=== PATIENT | male | born 1955 | race Caucasian/White ===

== ENCOUNTER 2017-01-16 12:50 | Inpatient (IN) | payer OTHER ==
[2017-01-16] MEDS ORDERED: Morphine 10 MG/ML VIAL ONE ×3 (13:22→14:55)
[2017-01-16] MEDS ORDERED: Ondansetron ODT 4 MG TAB ONE (13:23)
[2017-01-16] MEDS ORDERED: Ondansetron HCl/PF 4 MG/2 ML Vial ONE (13:25)
--- NOTE | 2017-01-16 13:31 | RAD ---
UPRIGHT PORTABLE CHEST 1 VIEW: FINDINGS: Monitor leads overlie the chest. There are postsurgical clips overlying the right hilar region. Th ere are minimal increased linear and interstitial markings noted bilaterally, possibly representing some mild vascular congestion. No confluent pneumonia, significant pleural effusion, or other acute process. IMPRESSION: Increased markings noted in the perihilar regions and lower lung zones, possibly mild vascular conge stion. Postoperative surgical clips overlying the right hilar region. No evidence for pneumonia. Less inspiration than on the prior study. POS: HORACIO
[2017-01-16 13:42] LABS: #Lymphocytes 0.6 thou/uL (1.20-3.40); #Neutrophils 12.6 thou/uL (1.40-6.50); %Basophils 0.1 % (0.0-1.0); %Eosinophils 0.2 % (0.0-10.0); %Lymphocytes 4.5 % (21.0-51.0); %Monocytes 7.2 % (0.0-10.0); Hematocrit 44.5 % (42.0-52.0); Mean Platelet Volume 9.4 fL (7.4-10.4); Red Blood Cell (RBC) Count 4.83 mill/uL (4.70-6.10); White Blood Cell (WBC) Count 14.3 thou/uL (4.8-10.8)
[2017-01-16 13:50] LABS: Lactic Acid - Sepsis 1.6 mmol/L (0.5-2.2)
[2017-01-16 13:54] LABS: ALT (SGPT) 27 U/L (8-55); AST (SGOT) 24 U/L (5-34); Alkaline Phosphatase 55 U/L (40-150); Anion Gap 15 mmol/L (10-20); BUN (Urea Nitrogen) 21 mg/dL (8.4-25.7); Bilirubin, Total 0.5 mg/dL (0.2-1.2); CK (CPK) 266 U/L (30-200); Calc. Creatinine Clearance 0 mL/min (70-130); Calcium 8.4 mg/dL (7.8-10.44); Carbon Dioxide 22 mmol/L (23-31); Chloride 103 mmol/L (98-107); Estimated GFR-MDRD 50; Globulin 3.1 g/dL (2.4-3.5); Lipase 17 U/L (8-78)
[2017-01-16 13:56] LABS: Troponin I Less than 0.010 ng/mL (< 0.028)
[2017-01-16 14:09] LABS: PTT 30.6 SEC (22.9-36.1); Prothrombin Time 13.8 SEC (12.0-14.7)
[2017-01-16 14:52] LABS: Bilirubin Negative (Negative); Blood, Urine Negative (Negative); Glucose, Urine (Dipstick) Negative (Negative); Ketone, Urine Negative (Negative); Nitrite Negative (Negative); Protein, Urine (Dipstick) 30 mg/dL (Neg-Trace)
[2017-01-16 14:54] LABS: Bacteria/HPF None Seen HPF (None Seen); Hyaline Casts/LPF 0-3 HYALINE CAST LPF (0-3 Hyaline); RBC/HPF 0-3 HPF (0-3); Squamous Epithelial None Seen HPF (0-3); WBC/HPF 0-3 HPF (0-3)
--- NOTE | 2017-01-16 15:52 | CT ---
ABDOMEN AND PELVIC CT SCAN WITH IV CONTRAST: History: 61-year-old male with abdominal pain which began on Tuesday. FINDINGS: There is some patchy interstitial and alveolar opacities in the left lower lobe, evidence for some l eft lower lobe developing pneumonia or left lower lobe pneumonitis. These findings are new when comp ared to a 08-27-11 CT. There appears to be some reflux into the distal esophagus. The gallbladder is mildly distended and contains some gallstones but no gallbladder wall thickening or evidence for per icholecystic fluid or fat stranding. The liver, pancreas, and adrenal glands are unremarkable. The l eft kidney is a very small hypoplastic appearing left kidney. There are several left periaortic lymp h nodes which are at least borderline enlarged to mildly enlarged measuring up to approximately 1.1 cm in short axis in the left periaortic region just below the level of the left renal artery. Promin ent atherosclerotic calcific changes of the aorta and particularly the common iliac arteries with so me left common iliac artery stenosis. There appear to be bilateral external iliac stents. Surgical c lips in the left groin. There is some minimal fluid within borderline sized small bowel loops withou t evidence for large and small bowel obstruction. Normal appearing appendix. There is some mild scat tered nonspecific mesenteric fat stranding, particularly in the central mesentery. IMPRESSION: 1. Evidence for left lower lobe pneumonia/pneumonitis. 2. Very small atrophic appearing left kidney. Multiple gallstones without gallbladder wall thickenin g or pericholecystic fluid or fat stranding or ductal dilatation. Minimally enlarged left retroperit james lymph nodes up to 1.1 cm. Nonspecific mesenteric fat stranding in the central and inferior mes entery. There is a moderate amount of fluid within nondilated or borderline size small bowel loops w ithout evidence for acute obstruction. Prominent arterial vascular disease of the aorta and iliac ve ssels. Normal appearing appendix. POS: CHERYL
[2017-01-16] MEDS ORDERED: ISOVUE-370 76%-LOCM 1 ML ONE (16:19)
[2017-01-16] MEDS ORDERED: Loratadine 10 MG TAB PO PRN (16:28)
[2017-01-16] MEDS ORDERED: Acetaminophen 325 MG TAB PO PRN (16:28)
[2017-01-16] MEDS ORDERED: Milk Of Magnesia 30 ML UDCUP PO PRN (16:28)
[2017-01-16] MEDS ORDERED: Senokot 8.6 MG TAB PO PRN (16:28)
[2017-01-16] MEDS ORDERED: Eucerin (Mineral Oil/Petrolatum,White) 30 gm Jar TOP PRN (16:28)
[2017-01-16] MEDS ORDERED: Ondansetron ODT 4 MG TAB PO PRN (16:28)
[2017-01-16] MEDS ORDERED: Artificial Tears 18 DROP/0.9 ML EA EYE PRN (16:28)
[2017-01-16] MEDS ORDERED: Mag-Al 1200 mg/1200 mg/30 ML UDCUP PO PRN (16:28)
[2017-01-16] MEDS ORDERED: Loperamide HCl 2 MG CAP PO PRN (16:28)
[2017-01-16] MEDS ORDERED: Chloraseptic Spray 180 ml Bottle PO PRN (16:28)
[2017-01-16] MEDS ORDERED: Diabetic Tussin 200 MG/10 ML UDCUP PO PRN (16:28)
[2017-01-16] MEDS ORDERED: Sodium Chloride 0.65% Nasal 44 ML BOT EA NARE PRN (16:28)
[2017-01-16] MEDS ORDERED: Zolpidem Tartrate 5 MG TAB PO PRN (16:28)
[2017-01-16] MEDS ORDERED: hydrALAZINE 20 MG/ML VIAL SLOW IVP PRN (16:28)
[2017-01-16] MEDS ORDERED: cefTRIAXone\\ROCEPHIN 1 GM in Sodium Chloride 0.9% 100 ML IVPB SCH (16:28)
[2017-01-16] MEDS ORDERED: HYDROcodone/Acetaminophen 10/325 mg Tablet PO PRN (16:28)
[2017-01-16 16:36] VITALS: BMI 24.3
--- NOTE | 2017-01-16 16:38 | HP ---
PRIMARY CARE PHYSICIAN: Dr. Karly Wood. REASON FOR ADMISSION: Intractable abdominal pain, pneumonia. HISTORY OF PRESENT ILLNESS: A 61-year-old male with history of COPD and hypertension, who came to e mergewiy room with complaint of abdominal pain, which was started Tuesday night. On Tuesday, he was having 5 times liquidy diarrhea. He describes abdominal pain, diffuse, 10/10 in intensity, there i s no specific aggravating or relieving factor, constant abdominal pain. He denies any abdominal dis tention. He denies any hematemesis, hematochezia, or melena. He was feeling nausea. For the last week, patient was also experiencing cough, productive of scanty amount of sputum. He was also feeli ng sweating and chills. He did not measure temperature. He is feeling pleuritic chest pain. His last bowel movement was earlier today at 10:00 a.m. Since then, his diarrhea is slowed down. H e does not have any ongoing vomiting. He denies any urinary tract infection symptoms. For the last couple of days, he was only eating liquid and Jellos, because he was not feeling well. He denies a [place] flu-like illness. He denies any recent travel or sick exposure. He denies any unusual food weston stion. REVIEW OF SYSTEMS: Please see my HPI for pertinent positives and negatives. All other review of sy stems reviewed and negative except as mentioned in the HPI. Constitutional: Weight loss or gain, ability to conduct usual activities. Skin: Rash, itching. Eyes: Double vision, pain. ENT/Mouth: Nose bleeding, neck stiffness, pain, tenderness. Cardiovascular: Palpitations, dyspnea on exertion, orthopnea. Respiratory: Shortness of breath, wheezing, cough, hemoptysis, fever, or night sweats. Gastrointestinal: Poor appetite, abdominal pain, heartburn, nausea, vomiting, constipation, or diar [place]. Genitourinary: Urgency, frequency, dysuria, nocturia. Musculoskeletal: Pain, swelling. Neurologic/Psychiatric: Anxiety, depression. Allergy/Immunologic: Skin rash, bleeding tendency. ALLERGIES: No known drug allergies. CURRENT HOME MEDICATIONS: Aspirin 81 mg p.o. daily, Cymbalta 30 mg p.o. daily, Singulair 10 mg p.o. daily, Nexium 40 mg p.o. daily, terazosin 2 mg p.o. daily, losartan 50 mg p.o. daily, acyclovir 400 mg twice daily, clonazepam 1 mg twice daily, Symbicort 2 puffs inhalation b.i.d. PAST MEDICAL HISTORY: COPD/asthma, gastroesophageal reflux disease, hypertension, benign enlargemen t of prostate. PAST PSYCHIATRIC HISTORY: Anxiety and depression. PAST SURGICAL HISTORY: Major right thoracotomy with exploration and excisional biopsy of right uppe r lobe lung mass. SOCIAL HISTORY: Patient is smoking about half pack per day. He denies any alcohol abuse. He denie s any other illicit drug abuse. He lives at home with family. FAMILY HISTORY: No strong family history of premature coronary artery disease, stroke, or cancer. EMERGENCY ROOM COURSE: Patient is given Levaquin 750 mg, morphine 4 mg x2, Zofran 8 mg, IV fluid. PHYSICAL EXAMINATION: VITAL SIGNS: Currently blood pressure 154/81, pulse 96, respiratory rate 18, temperature 98.3, satu ration 92% on room air, weight 78.9 kilograms. GENERAL: Patient is currently alert, awake, in no obvious acute distress. HEAD: Normocephalic, atraumatic. EYES: Pupils round, reactive to light. Extraocular muscles intact. ENT: Oropharynx within normal limits. Moist mucous membranes. No oral lesions. No pharyngeal ganesh thema, no exudate. NECK: Supple. Range of motion is normal. No meningeal signs of irritation. LUNGS: Clear to auscultation without any obvious rhonchi or rales. CARDIAC: S1, S2 regular. No murmur, no gallop, no rub. ABDOMEN: Diffusely tender. No peritoneal signs, no guarding, no rigidity, no rebound. Mild disten tion noted. BACK: Unremarkable. No CVA tenderness. EXTREMITIES: Upper extremity of passive movement of all joints are normal. Lower extremity, no charly ma. Good peripheral pulsation. SKIN: No skin rash. HEMATOLOGICAL SYSTEM: No lymphadenopathy. PSYCHIATRIC: Normal affect. SIGNIFICANT LABORATORY DATA: EKG based on my review reveals normal sinus rhythm within normal limit s. Chest x-ray based on my review, mild cardiomegaly, no acute cardiopulmonary process. CT of the abdomen and pelvis showing left lower lobe pneumonia minimally enlarged lymph nodes, normal appendix , gallstone, but no cholecystitis. Ultrasound gallbladder is pending. CBC: WBC 14.3, hemoglobin 14.9, platelet 159. INR 1.1. BMP: Sodium 136, potassium 3.9, chloride 103, carbon dioxide 22, BUN 21, creatinine 1.44, glucose 115, calcium 8.4, lactic acid 1.6. LFT: A ST 24, ALT 27, alkaline phosphatase 55, albumin 3.9. CK 266, CK-MB 1.7, troponin I less than 0.010, BNP less than 10. Lipase 17. Urinalysis normal. ASSESSMENT AND PLAN: 1. Left lower lobe pneumonia, community acquired. Patient will be given Levaquin and Rocephin whil e in hospital. Mucinex 600 mg twice daily and DuoNeb q.6 hourly p.r.n. The patient's respiratory s ymptoms and CT finding consistent with left lower lobe pneumonia. 2. Intractable abdominal pain. Patient might have underlying acute cholecystitis. Patient does baez ve gallstones. We will do HIDA scan to rule out acute cholecystitis. We are going to do abdomen an d pelvis CT scan as well as we are also going to review abdominal ultrasound. We will continue the clear liquid diet. We will control his pain with morphine p.r.n. basis, Pepcid 20 mg IV b.i.d. 3. Acute kidney failure. The patient will be given IV fluids with dextrose normal saline at 100 mL per hour. 4. Leukocytosis with left shift, likely due to problem #1 and #2. We will repeat CBC tomorrow. 5. Chronic obstructive pulmonary disease. We will continue DuoNeb q.6 hourly p.r.n., Symbicort 2 p uff inhalation b.i.d. 6. Anxiety and depression. We will continue Cymbalta 30 mg p.o. daily, clonazepam 1 mg twice daily . 7. Hypertension. We will continue losartan 50 mg p.o. daily. 8. Gastroesophageal reflux disease. We will continue Pepcid 20 mg IV b.i.d./Protonix 40 mg IV dickson y. 9. Benign enlargement of prostate. We will continue terazosin 2 mg p.o. daily. 10. Deep venous thrombosis prophylaxis, SCD boots. 11. Gastrointestinal prophylaxis. Patient is already on Pepcid/Protonix therapy. 12. Code status: The patient is FULL CODE. 13. Tobacco abuse disorder. Smoking cessation counseling given. Healthy lifestyle measures discus sed with the patient. Disposition plan based on clinical course. We are expecting patient's stay in hospital more than 2 midnights. Plan of care discussed with the patient and family member at bedside in the emergency room.
--- NOTE | 2017-01-16 17:07 | ULT ---
GALLBLADDER ULTRASOUND: History: 61-year-old male with epigastric pain for three days. FINDINGS: There are multiple mobile gallstones within the gallbladder. No pericholecystic fluid. Common bile d uct 0.4 cm. Visualized liver and pancreas unremarkable. There is an approximately 2 cm diameter nodu lar area involving the mid kidney which may just represent a prominent hypertrophic column of Arsh in this somewhat hypertrophied right kidney. Review of prior CT of 01-16-17 demonstrates no definit e evidence for solid or cystic mass in the right kidney by CT. IMPRESSION: Multiple cholelithiasis without gallbladder wall thickening or ductal dilatation. 2 cm focal area of slightly altered echogenicity in the mid renal cortex, probably just a hypertrophic Column of Berti n given the lack of significant finding on the abdomen and pelvic CT scan done earlier. However, if the patient has hematuria or other symptoms, consideration for a non-emergent follow up CT scan with urography protocol which would include with and without multiphase imaging of the ki dneys is suggested for assessment. POS: HORACIO
[2017-01-16] MEDS: Dextrose 5 % And 0.9 % NaCl 1,000 ML IV SCH (17:33)
[2017-01-16] MEDS: cefTRIAXone\\ROCEPHIN 1 GM, Syringe 0.4 ML in Sterile Water 9.6 ML SLOW IVP SCH (17:36)
[2017-01-16] MEDS: Mometasone/Formoterol 120 PUFF INHALER INH SCH (19:10)
[2017-01-16] MEDS: Pantoprazole 40 MG VIAL IVP SCH (20:57)
[2017-01-16] MEDS: Montelukast Sodium 10 mg Tablet PO SCH (20:57)
[2017-01-16] MEDS: Terazosin HCl 1 MG CAP PO SCH (20:59)
[2017-01-16] MEDS: clonazePAM 0.5 MG TAB PO PRN (21:15)
[2017-01-17 05:07] LABS: #Eosinphils 0.2 thou/uL (0.0-0.7); #Lymphocytes 1.1 thou/uL (1.20-3.40); #Neutrophils 7.3 thou/uL (1.40-6.50); %Basophils 0.2 % (0.0-1.0); %Eosinophils 1.9 % (0.0-10.0); %Lymphocytes 11.9 % (21.0-51.0); %Monocytes 10.5 % (0.0-10.0); Red Blood Cell (RBC) Count 4.08 mill/uL (4.70-6.10); White Blood Cell (WBC) Count 9.6 thou/uL (4.8-10.8)
[2017-01-17] MEDS: Dextrose 5 % And 0.9 % NaCl 1,000 ML IV SCH ×4 (05:15→23:48)
[2017-01-17 05:32] LABS: ALT (SGPT) 24 U/L (8-55); AST (SGOT) 25 U/L (5-34); Alkaline Phosphatase 47 U/L (40-150); Anion Gap 9 mmol/L (10-20); BUN (Urea Nitrogen) 16 mg/dL (8.4-25.7); Bilirubin, Total 0.4 mg/dL (0.2-1.2); Calc. Creatinine Clearance 63 mL/min (70-130); Calcium 7.5 mg/dL (7.8-10.44); Carbon Dioxide 23 mmol/L (23-31); Chloride 105 mmol/L (98-107); Estimated GFR-MDRD 54; Globulin 2.5 g/dL (2.4-3.5); Protein, Total 5.5 g/dL (5.8-8.1)
[2017-01-17] MEDS: Mometasone/Formoterol 120 PUFF INHALER INH SCH ×2 (07:01→18:08)
[2017-01-17] MEDS: Enoxaparin Sodium 30 MG/0.3 ML SYRINGE SC SCH (10:58)
[2017-01-17] MEDS: Pantoprazole 40 MG VIAL IVP SCH ×2 (10:58→20:27)
[2017-01-17] MEDS: Losartan Potassium 25 MG TAB PO SCH ×2 (10:59→14:36)
--- NOTE | 2017-01-17 13:49 | PDOC.PN ---
- Subjective Encounter Start Date: 01/17/17 Encounter Start Time: 09:30 Patient seen and examined. No overnight events, has abdominal pain, no fever, has cough - Objective Resuscitation Status: Resuscitation Status FULL:Full Resuscitation MAR Reviewed: Yes Vital Signs & Weight: Vital Signs (12 hours) Temp Pulse Resp BP Pulse Ox 01/17/17 11:06 97.6 F 82 18 106/62 94 L 01/17/17 08:00 97.6 F 75 20 116/66 96 01/17/17 07:30 98.2 F 82 18 01/17/17 04:00 98.2 F 82 18 97/60 94 L Weight Weight 169 lb 6.4 oz I&O: 01/16/17 01/17/17 01/18/17 06:59 06:59 06:59 Intake Total 2310 Balance 2310 Result Diagrams: 01/17/17 04:20 01/17/17 04:20 Phys Exam - Physical Examination Constitutional: NAD HEENT: PERRLA, moist MMs, sclera anicteric Neck: no JVD, supple Respiratory: no wheezing, no rales, no rhonchi Cardiovascular: RRR, no significant murmur, no rub Gastrointestinal: soft, no distention, positive bowel sounds diffuse soreness Musculoskeletal: no edema, pulses present Neurological: non-focal, normal sensation, moves all 4 limbs Lymphatic: no nodes Psychiatric: normal affect, A&O x 3 Skin: no rash, normal turgor Dx/Plan (1) Abdominal pain Code(s): R10.9 - UNSPECIFIED ABDOMINAL PAIN Status: Acute Qualifiers: Abdominal location: generalized Qualified Code(s): R10.84 - Generalized abdominal pain (2) Community acquired bacterial pneumonia Code(s): J15.9 - UNSPECIFIED BACTERIAL PNEUMONIA Status: Acute (3) Anxiety and depression Code(s): F41.8 - OTHER SPECIFIED ANXIETY DISORDERS Status: Chronic (4) CKD (chronic kidney disease) stage 3, GFR 30-59 ml/min Code(s): N18.3 - CHRONIC KIDNEY DISEASE, STAGE 3 (MODERATE) Status: Chronic (5) COPD (chronic obstructive pulmonary disease) Status: Chronic (6) Cholelithiases Code(s): K80.20 - CALCULUS OF GALLBLADDER W/O CHOLECYSTITIS W/O OBSTRUCTION Status: Chronic (7) GERD (gastroesophageal reflux disease) Code(s): K21.9 - GASTRO-ESOPHAGEAL REFLUX DISEASE WITHOUT ESOPHAGITIS Status: Chronic (8) Hypertension Code(s): I10 - ESSENTIAL (PRIMARY) HYPERTENSION Status: Chronic (9) Tobacco abuse Code(s): Z72.0 - TOBACCO USE Status: Chronic - Plan cont current plan of care, continue antibiotics * continue rocephin and levaquin * medication reviewed as below * symptomatic treatment * HIDA scan today * pain controlled * follow culture. Review of Systems - Review of Systems ENT: negative: Ear Pain, Ear Discharge, Nose Pain, Nose Discharge, Nose Congestion, Mouth Pain, Mouth Swelling, Throat Pain, Throat Swelling, Other Respiratory: Cough. negative: Dry, Shortness of Breath, Hemoptysis, SOB with Excertion, Pleuritic Pain, Sputum, Wheezing Cardiovascular: negative: Chest Pain, Palpitations, Orthopnea, Paroxysmal Noc. Dyspnea, Edema, Light Headedness, Other Gastrointestinal: Abdominal Pain. negative: Nausea, Vomiting, Diarrhea, Constipation, Melena, Hematochezia, Other Genitourinary: negative: Dysuria, Frequency, Incontinence, Hematuria, Retention , Other Musculoskeletal: negative: Neck Pain, Shoulder Pain, Arm Pain, Back Pain, Hand Pain, Leg Pain, Foot Pain, Other Skin: negative: Rash, Lesions, Delon, Bruising, Other - Medications/Allergies Allergies/Adverse Reactions: Allergies Allergy/AdvReac Type Severity Reaction Status Date / Time No Known Drug Allergies Allergy Verified 03/25/16 10:01 Medications: Current Medications Acetaminophen (Tylenol) 650 mg PO Q4H PRN PRN Reason: Headache/Fever or Pain Hydrocodone Bitart/Acetaminophen ([place] 10/325) 1 tab PO Q4H PRN PRN Reason: Moderate Pain (4-6) Al Hydroxide/Mg Hydroxide (Maalox) 30 ml PO Q6H PRN PRN Reason: Heartburn or Indigestion Albuterol/Ipratropium (Duoneb) 3 ml NEB [id number] PRN PRN Reason: SOB &/or Wheezing Artificial Tears (Tears Naturale) 0 drop EA EYE PRN PRN PRN Reason: Dry Eyes Clonazepam (Klonopin) 1 mg PO BIDPRN PRN PRN Reason: Anxiety/Agitation Last Admin: 01/16/17 21:15 Dose: 1 mg Duloxetine HCl (Cymbalta) 30 mg PO BID [facility] Last Admin: 01/17/17 10:59 Dose: Not Given Enoxaparin Sodium (Lovenox) 30 mg SC 0900 [facility] Last Admin: 01/17/17 10:58 Dose: 30 mg Guaifenesin (Robitussin Sf) 200 mg PO Q4H PRN PRN Reason: Cough Hydralazine HCl (Apresoline) 10 mg SLOW IVP Q4H PRN PRN Reason: Systolic BP > 180 Levofloxacin 500 mg/ Device 100 mls @ 100 mls/hr IVPB 1700 [facility] Last Admin: 01/16/17 17:16 Dose: 100 mls Dextrose/Sodium Chloride (D5 0.9% Ns) 1,000 mls @ 100 mls/hr IV .Q10H [facility] Last Admin: 01/17/17 05:15 Dose: 1,000 mls Ceftriaxone Sodium 1 gm/ (Syringe 0.4 ml/ Sterile Water) 10 mls @ 120 mls/hr SLOW IVP 1800 [facility] Last Admin: 01/16/17 17:36 Dose: 10 mls Loperamide HCl (Imodium) 2 mg PO PRN PRN PRN Reason: Diarrhea/Loose Stools Loratadine (Claritin) 10 mg PO DAILYPRN PRN PRN Reason: Sinus Symptoms Losartan Potassium (Cozaar) 50 mg PO DAILY [facility] Last Admin: 01/17/17 10:59 Dose: Not Given Magnesium Hydroxide (Milk Of Magnesium) 30 ml PO DAILYPRN PRN PRN Reason: Constipation Mineral Oil/White Petrolatum (Eucerin Cream) 0 gm TOP BIDPRN PRN PRN Reason: Dry Skin Mometasone Furoate/Formoterol Fumar (Dulera 200 Mcg/5 Mcg Inhaler) 2 puff INH BID-RT [facility] Last Admin: 01/17/17 07:01 Dose: 2 puff Montelukast Sodium (Singulair) 10 mg PO QPM [facility] Last Admin: 01/16/17 20:57 Dose: 10 mg Morphine Sulfate (Morphine Sulfate) 4 mg SLOW IVP Q4H PRN PRN Reason: Pain Ondansetron HCl (Zofran Odt) 4 mg PO Q6H PRN PRN Reason: Nausea/Vomiting Ondansetron HCl (Zofran) 4 mg IVP Q6H PRN PRN Reason: Nausea/Vomiting Pantoprazole Sodium (Protonix) 40 mg IVP Q12HR [facility] Last Admin: 01/17/17 10:58 Dose: 40 mg Phenol (Chloraseptic [place] 180 Ml Bot) 0 ml PO PRN PRN PRN Reason: Sore Throat Senna (Senokot) 2 tab PO HSPRN PRN PRN Reason: Constipation Sodium Chloride ([place] Nasal [place] 0.65%) 0 ml EA NARE QIDPRN PRN PRN Reason: Nasal Congestion Terazosin HCl (Hytrin) 2 mg PO HS [facility] Last Admin: 01/16/17 20:59 Dose: 2 mg Zolpidem Tartrate (Ambien) 5 mg PO HSPRN PRN PRN Reason: Insomnia
[2017-01-17] MEDS: Ondansetron HCl/PF 4 MG/2 ML Vial IVP PRN (14:36)
[2017-01-17] MEDS: clonazePAM 0.5 MG TAB PO PRN ×2 (14:39→20:31)
[2017-01-17] MEDS: Morphine 4 MG/ML VIAL SLOW IVP PRN (17:34)
[2017-01-17] MEDS: cefTRIAXone\\ROCEPHIN 1 GM, Syringe 0.4 ML in Sterile Water 9.6 ML SLOW IVP SCH (17:38)
[2017-01-17] MEDS: Montelukast Sodium 10 mg Tablet PO SCH (20:27)
[2017-01-17] MEDS: Terazosin HCl 1 MG CAP PO SCH (20:27)
[2017-01-18] MEDS: Mometasone/Formoterol 120 PUFF INHALER INH SCH ×2 (06:05→18:16)
[2017-01-18] MEDS: Ondansetron HCl/PF 4 MG/2 ML Vial IVP PRN ×2 (06:38→12:19)
--- NOTE | 2017-01-18 11:57 | PDOC.PN ---
- Subjective Encounter Start Date: 01/18/17 Encounter Start Time: 09:10 he wants to eat but now npo for hida scan, has vague abdominal pain, cough+, no fever - Objective Resuscitation Status: Resuscitation Status FULL:Full Resuscitation MAR Reviewed: Yes Vital Signs & Weight: Vital Signs (12 hours) Temp Pulse Resp BP Pulse Ox 01/18/17 07:34 97.9 F 62 20 123/66 93 L 01/18/17 06:05 69 14 95 01/18/17 00:43 96 01/18/17 00:09 97.9 F 71 20 98/58 L 95 Weight Weight 169 lb 6.4 oz I&O: 01/17/17 01/18/17 01/19/17 06:59 06:59 06:59 Intake Total 2310 4540 Balance 2310 4540 Result Diagrams: 01/17/17 04:20 01/17/17 04:20 Phys Exam - Physical Examination Constitutional: NAD HEENT: PERRLA, moist MMs, sclera anicteric Neck: no JVD, supple Respiratory: no wheezing, no rales, no rhonchi Cardiovascular: RRR, no significant murmur, no rub Gastrointestinal: soft, non-tender, no distention, positive bowel sounds Musculoskeletal: no edema, pulses present Neurological: non-focal, normal sensation Psychiatric: normal affect, A&O x 3 Skin: no rash, normal turgor Dx/Plan (1) Abdominal pain Code(s): R10.9 - UNSPECIFIED ABDOMINAL PAIN Status: Acute Qualifiers: Abdominal location: generalized Qualified Code(s): R10.84 - Generalized abdominal pain (2) Community acquired bacterial pneumonia Code(s): J15.9 - UNSPECIFIED BACTERIAL PNEUMONIA Status: Acute (3) Anxiety and depression Code(s): F41.8 - OTHER SPECIFIED ANXIETY DISORDERS Status: Chronic (4) CKD (chronic kidney disease) stage 3, GFR 30-59 ml/min Code(s): N18.3 - CHRONIC KIDNEY DISEASE, STAGE 3 (MODERATE) Status: Chronic (5) COPD (chronic obstructive pulmonary disease) Status: Chronic (6) Cholelithiases Code(s): K80.20 - CALCULUS OF GALLBLADDER W/O CHOLECYSTITIS W/O OBSTRUCTION Status: Chronic (7) GERD (gastroesophageal reflux disease) Code(s): K21.9 - GASTRO-ESOPHAGEAL REFLUX DISEASE WITHOUT ESOPHAGITIS Status: Chronic (8) Hypertension Code(s): I10 - ESSENTIAL (PRIMARY) HYPERTENSION Status: Chronic (9) Tobacco abuse Code(s): Z72.0 - TOBACCO USE Status: Chronic - Plan cont current plan of care, continue antibiotics * today HIDA scan * abdominal pain is unexplained but exam benign * medication reviewed as below * symptomatic treatment * continue IV antibiotics * repeat labs tomorrow. Review of Systems - Review of Systems Constitutional: negative: Fever, Chills, Sweats, Weakness, Malaise, Other Eyes: negative: Pain, Vision Change, Conjunctivae Inflammation, Eyelid Inflammation, Redness, Other ENT: negative: Ear Pain, Ear Discharge, Nose Pain, Nose Discharge, Nose Congestion, Mouth Pain, Mouth Swelling, Throat Pain, Throat Swelling, Other Respiratory: negative: Cough, Dry, Shortness of Breath, Hemoptysis, SOB with Excertion, Pleuritic Pain, Sputum, Wheezing Cardiovascular: negative: Chest Pain, Palpitations, Orthopnea, Paroxysmal Noc. Dyspnea, Edema, Light Headedness, Other Gastrointestinal: Abdominal Pain. negative: Nausea, Vomiting, Diarrhea, Constipation, Melena, Hematochezia, Other Genitourinary: negative: Dysuria, Frequency, Incontinence, Hematuria, Retention , Other Musculoskeletal: negative: Neck Pain, Shoulder Pain, Arm Pain, Back Pain, Hand Pain, Leg Pain, Foot Pain, Other - Medications/Allergies Allergies/Adverse Reactions: Allergies Allergy/AdvReac Type Severity Reaction Status Date / Time No Known Drug Allergies Allergy Verified 03/25/16 10:01 Medications: Current Medications Acetaminophen (Tylenol) 650 mg PO Q4H PRN PRN Reason: Headache/Fever or Pain Hydrocodone Bitart/Acetaminophen ([place] 10/325) 1 tab PO Q4H PRN PRN Reason: Moderate Pain (4-6) Al Hydroxide/Mg Hydroxide (Maalox) 30 ml PO Q6H PRN PRN Reason: Heartburn or Indigestion Albuterol/Ipratropium (Duoneb) 3 ml NEB [id number] PRN PRN Reason: SOB &/or Wheezing Artificial Tears (Tears Naturale) 0 drop EA EYE PRN PRN PRN Reason: Dry Eyes Clonazepam (Klonopin) 1 mg PO BIDPRN PRN PRN Reason: Anxiety/Agitation Last Admin: 01/17/17 20:31 Dose: 1 mg Duloxetine HCl (Cymbalta) 30 mg PO BID [facility] Last Admin: 01/17/17 20:26 Dose: Not Given Enoxaparin Sodium (Lovenox) 30 mg SC 0900 [facility] Last Admin: 01/17/17 10:58 Dose: 30 mg Guaifenesin (Robitussin Sf) 200 mg PO Q4H PRN PRN Reason: Cough Hydralazine HCl (Apresoline) 10 mg SLOW IVP Q4H PRN PRN Reason: Systolic BP > 180 Levofloxacin 500 mg/ Device 100 mls @ 100 mls/hr IVPB 1700 [facility] Last Admin: 01/17/17 16:44 Dose: 100 mls Dextrose/Sodium Chloride (D5 0.9% Ns) 1,000 mls @ 100 mls/hr IV .Q10H [facility] Last Admin: 01/17/17 23:48 Dose: 1,000 mls Ceftriaxone Sodium 1 gm/ (Syringe 0.4 ml/ Sterile Water) 10 mls @ 120 mls/hr SLOW IVP 1800 [facility] Last Admin: 01/17/17 17:38 Dose: 10 mls Loperamide HCl (Imodium) 2 mg PO PRN PRN PRN Reason: Diarrhea/Loose Stools Loratadine (Claritin) 10 mg PO DAILYPRN PRN PRN Reason: Sinus Symptoms Losartan Potassium (Cozaar) 50 mg PO DAILY [facility] Last Admin: 01/17/17 14:36 Dose: Not Given Magnesium Hydroxide (Milk Of Magnesium) 30 ml PO DAILYPRN PRN PRN Reason: Constipation Mineral Oil/White Petrolatum (Eucerin Cream) 0 gm TOP BIDPRN PRN PRN Reason: Dry Skin Mometasone Furoate/Formoterol Fumar (Dulera 200 Mcg/5 Mcg Inhaler) 2 puff INH BID-RT [facility] Last Admin: 01/18/17 06:05 Dose: 2 puff Montelukast Sodium (Singulair) 10 mg PO QPM [facility] Last Admin: 01/17/17 20:27 Dose: 10 mg Morphine Sulfate (Morphine Sulfate) 4 mg SLOW IVP Q4H PRN PRN Reason: Pain Last Admin: 01/17/17 17:34 Dose: 4 mg Ondansetron HCl (Zofran Odt) 4 mg PO Q6H PRN PRN Reason: Nausea/Vomiting Ondansetron HCl (Zofran) 4 mg IVP Q6H PRN PRN Reason: Nausea/Vomiting Last Admin: 01/18/17 06:38 Dose: 4 mg Pantoprazole Sodium (Protonix) 40 mg IVP Q12HR [facility] Last Admin: 01/17/17 20:27 Dose: 40 mg Phenol (Chloraseptic [place] 180 Ml Bot) 0 ml PO PRN PRN PRN Reason: Sore Throat Senna (Senokot) 2 tab PO HSPRN PRN PRN Reason: Constipation Sodium Chloride ([place] Nasal [place] 0.65%) 0 ml EA NARE QIDPRN PRN PRN Reason: Nasal Congestion Terazosin HCl (Hytrin) 2 mg PO HS [facility] Last Admin: 01/17/17 20:27 Dose: 2 mg Zolpidem Tartrate (Ambien) 5 mg PO HSPRN PRN PRN Reason: Insomnia
[2017-01-18] MEDS: Morphine 4 MG/ML VIAL SLOW IVP PRN ×3 (12:19→21:56)
[2017-01-18] MEDS: Pantoprazole 40 MG VIAL IVP SCH ×2 (12:25→19:30)
[2017-01-18] MEDS: Dextrose 5 % And 0.9 % NaCl 1,000 ML IV SCH ×2 (12:55→23:52)
[2017-01-18] MEDS: Losartan Potassium 25 MG TAB PO SCH (12:59)
[2017-01-18] MEDS: clonazePAM 0.5 MG TAB PO PRN (13:03)
--- NOTE | 2017-01-18 14:04 | NM ---
NUCLEAR MEDICINE HEPATOBILIARY SCAN WITH EJECTION FRACTION: Date: 01/18/17 HISTORY: 61-year-old male with abdominal pain and cholelithiasis. TECHNIQUE/FINDINGS: The patient was injected with 5.1 mCi technetium-99m mebrofenin intravenously. There is prompt uptak e of the tracer by the liver. There is excretion of the tracer into the biliary tree and filling of the gallbladder. At the 1 hour time interval, the patient was injected with 1.5 mcg CCK intravenousl y over 30 minutes. Gallbladder ejection fraction markedly low at 7%. IMPRESSION: Evidence for gallbladder dysfunction with an abnormally low ejection fraction of 7%. POS: HORACIO
[2017-01-18] MEDS: Enoxaparin Sodium 30 MG/0.3 ML SYRINGE SC SCH (14:34)
[2017-01-18] MEDS: cefTRIAXone\\ROCEPHIN 1 GM, Syringe 0.4 ML in Sterile Water 9.6 ML SLOW IVP SCH (18:42)
[2017-01-18] MEDS: Montelukast Sodium 10 mg Tablet PO SCH (19:30)
[2017-01-18] MEDS: Terazosin HCl 1 MG CAP PO SCH (19:31)
[2017-01-19 05:31] LABS: #Basophils 0.1 thou/uL (0.0-0.2); #Eosinphils 0.4 thou/uL (0.0-0.7); #Lymphocytes 1.3 thou/uL (1.20-3.40); #Monocytes 0.6 thou/uL (0.11-0.59); #Neutrophils 3.1 thou/uL (1.40-6.50); %Basophils 0.9 % (0.0-1.0); %Eosinophils 6.5 % (0.0-10.0); %Lymphocytes 24.3 % (21.0-51.0); %Monocytes 10.8 % (0.0-10.0); Hematocrit 36.7 % (42.0-52.0); Red Blood Cell (RBC) Count 3.95 mill/uL (4.70-6.10); White Blood Cell (WBC) Count 5.4 thou/uL (4.8-10.8)
[2017-01-19 05:44] LABS: Anion Gap 9 mmol/L (10-20); BUN (Urea Nitrogen) 12 mg/dL (8.4-25.7); Calc. Creatinine Clearance 68 mL/min (70-130); Carbon Dioxide 26 mmol/L (23-31); Chloride 109 mmol/L (98-107); Estimated GFR-MDRD 59
[2017-01-19] MEDS: Mometasone/Formoterol 120 PUFF INHALER INH SCH ×2 (06:36→18:31)
--- NOTE | 2017-01-19 06:53 | PDOC.PN ---
- Subjective Encounter Start Date: 01/19/17 Encounter Start Time: 06:51 Patient seen and examined. No new complaints. No overnight events, still has abdominal pain - Objective Resuscitation Status: Resuscitation Status FULL:Full Resuscitation MAR Reviewed: Yes Vital Signs & Weight: Vital Signs (12 hours) Temp Pulse Resp BP Pulse Ox 01/19/17 06:36 67 14 94 L 01/19/17 04:38 97.4 F L 67 20 148/76 H 92 L 01/19/17 03:02 94 L 01/18/17 23:54 97.5 F L 61 20 133/66 95 01/18/17 20:00 97.9 F 63 20 95 01/18/17 19:21 97.9 F 63 20 120/66 95 Weight Weight 169 lb 6.4 oz I&O: 01/17/17 01/18/17 01/19/17 06:59 06:59 06:59 Intake Total 2310 4540 3100 Output Total 350 Balance 2310 4540 2750 Result Diagrams: 01/19/17 04:10 01/19/17 04:10 Radiology Reviewed by me: Yes (hida scan) Phys Exam - Physical Examination Constitutional: NAD HEENT: PERRLA, moist MMs, sclera anicteric Neck: no JVD, supple Respiratory: no wheezing, no rales, no rhonchi Cardiovascular: RRR, no significant murmur, no rub Gastrointestinal: soft, no distention, positive bowel sounds ruq pain Musculoskeletal: no edema, pulses present Neurological: non-focal, normal sensation, moves all 4 limbs Psychiatric: normal affect, A&O x 3 Skin: no rash, normal turgor Dx/Plan (1) Abdominal pain Code(s): R10.9 - UNSPECIFIED ABDOMINAL PAIN Status: Acute Qualifiers: Abdominal location: generalized Qualified Code(s): R10.84 - Generalized abdominal pain (2) Community acquired bacterial pneumonia Code(s): J15.9 - UNSPECIFIED BACTERIAL PNEUMONIA Status: Acute (3) Anxiety and depression Code(s): F41.8 - OTHER SPECIFIED ANXIETY DISORDERS Status: Chronic (4) CKD (chronic kidney disease) stage 3, GFR 30-59 ml/min Code(s): N18.3 - CHRONIC KIDNEY DISEASE, STAGE 3 (MODERATE) Status: Chronic (5) COPD (chronic obstructive pulmonary disease) Status: Chronic (6) Cholelithiases Code(s): K80.20 - CALCULUS OF GALLBLADDER W/O CHOLECYSTITIS W/O OBSTRUCTION Status: Chronic (7) GERD (gastroesophageal reflux disease) Code(s): K21.9 - GASTRO-ESOPHAGEAL REFLUX DISEASE WITHOUT ESOPHAGITIS Status: Chronic (8) Hypertension Code(s): I10 - ESSENTIAL (PRIMARY) HYPERTENSION Status: Chronic (9) Tobacco abuse Code(s): Z72.0 - TOBACCO USE Status: Chronic - Plan cont current plan of care, continue antibiotics * pt has abdnormal hida scan, will need lap walker * will consult general surgery today * keep NPO in case if he can get surgery today * medication reviewed as below * symptomatic treatment * continue antibiotics * if surgery done today, will consider discharge tomorrow. Review of Systems - Review of Systems Constitutional: negative: Fever, Chills, Sweats, Weakness, Malaise, Other ENT: negative: Ear Pain, Ear Discharge, Nose Pain, Nose Discharge, Nose Congestion, Mouth Pain, Mouth Swelling, Throat Pain, Throat Swelling, Other Respiratory: negative: Cough, Dry, Shortness of Breath, Hemoptysis, SOB with Excertion, Pleuritic Pain, Sputum, Wheezing Cardiovascular: negative: Chest Pain, Palpitations, Orthopnea, Paroxysmal Noc. Dyspnea, Edema, Light Headedness, Other Gastrointestinal: Abdominal Pain. negative: Nausea, Vomiting, Diarrhea, Constipation, Melena, Hematochezia, Other Genitourinary: negative: Dysuria, Frequency, Incontinence, Hematuria, Retention , Other Musculoskeletal: negative: Neck Pain, Shoulder Pain, Arm Pain, Back Pain, Hand Pain, Leg Pain, Foot Pain, Other Skin: negative: Rash, Lesions, Delon, Bruising, Other - Medications/Allergies Allergies/Adverse Reactions: Allergies Allergy/AdvReac Type Severity Reaction Status Date / Time No Known Drug Allergies Allergy Verified 03/25/16 10:01 Medications: Current Medications Acetaminophen (Tylenol) 650 mg PO Q4H PRN PRN Reason: Headache/Fever or Pain Hydrocodone Bitart/Acetaminophen (Lyons 10/325) 1 tab PO Q4H PRN PRN Reason: Moderate Pain (4-6) Al Hydroxide/Mg Hydroxide (Maalox) 30 ml PO Q6H PRN PRN Reason: Heartburn or Indigestion Albuterol/Ipratropium (Duoneb) 3 ml NEB [id number] PRN PRN Reason: SOB &/or Wheezing Artificial Tears (Tears Naturale) 0 drop EA EYE PRN PRN PRN Reason: Dry Eyes Clonazepam (Klonopin) 1 mg PO BIDPRN PRN PRN Reason: Anxiety/Agitation Last Admin: 01/18/17 13:03 Dose: 1 mg Duloxetine HCl (Cymbalta) 30 mg PO BID [facility] Last Admin: 01/18/17 19:30 Dose: 30 mg Enoxaparin Sodium (Lovenox) 30 mg SC 0900 [facility] Last Admin: 01/18/17 14:34 Dose: 30 mg Guaifenesin (Robitussin Sf) 200 mg PO Q4H PRN PRN Reason: Cough Hydralazine HCl (Apresoline) 10 mg SLOW IVP Q4H PRN PRN Reason: Systolic BP > 180 Levofloxacin 500 mg/ Device 100 mls @ 100 mls/hr IVPB 1700 [facility] Last Admin: 01/18/17 17:09 Dose: 100 mls Dextrose/Sodium Chloride (D5 0.9% Ns) 1,000 mls @ 100 mls/hr IV .Q10H [facility] Last Admin: 01/18/17 23:52 Dose: 1,000 mls Ceftriaxone Sodium 1 gm/ (Syringe 0.4 ml/ Sterile Water) 10 mls @ 120 mls/hr SLOW IVP 1800 [facility] Last Admin: 01/18/17 18:42 Dose: 10 mls Loperamide HCl (Imodium) 2 mg PO PRN PRN PRN Reason: Diarrhea/Loose Stools Loratadine (Claritin) 10 mg PO DAILYPRN PRN PRN Reason: Sinus Symptoms Losartan Potassium (Cozaar) 50 mg PO DAILY [facility] Last Admin: 01/18/17 12:59 Dose: Not Given Magnesium Hydroxide (Milk Of Magnesium) 30 ml PO DAILYPRN PRN PRN Reason: Constipation Mineral Oil/White Petrolatum (Eucerin Cream) 0 gm TOP BIDPRN PRN PRN Reason: Dry Skin Mometasone Furoate/Formoterol Fumar (Dulera 200 Mcg/5 Mcg Inhaler) 2 puff INH BID-RT [facility] Last Admin: 01/19/17 06:36 Dose: 2 puff Montelukast Sodium (Singulair) 10 mg PO QPM [facility] Last Admin: 01/18/17 19:30 Dose: 10 mg Morphine Sulfate (Morphine Sulfate) 4 mg SLOW IVP Q4H PRN PRN Reason: Pain Last Admin: 01/18/17 21:56 Dose: 4 mg Ondansetron HCl (Zofran Odt) 4 mg PO Q6H PRN PRN Reason: Nausea/Vomiting Ondansetron HCl (Zofran) 4 mg IVP Q6H PRN PRN Reason: Nausea/Vomiting Last Admin: 01/18/17 12:19 Dose: 4 mg Pantoprazole Sodium (Protonix) 40 mg IVP Q12HR [facility] Last Admin: 01/18/17 19:30 Dose: 40 mg Phenol (Chloraseptic Kellogg 180 Ml Bot) 0 ml PO PRN PRN PRN Reason: Sore Throat Senna (Senokot) 2 tab PO HSPRN PRN PRN Reason: Constipation Sodium Chloride (Montour Nasal Kellogg 0.65%) 0 ml EA NARE QIDPRN PRN PRN Reason: Nasal Congestion Terazosin HCl (Hytrin) 2 mg PO HS [facility] Last Admin: 01/18/17 19:31 Dose: Not Given Zolpidem Tartrate (Ambien) 5 mg PO HSPRN PRN PRN Reason: Insomnia
[2017-01-19] MEDS: Ondansetron HCl/PF 4 MG/2 ML Vial IVP PRN (07:44)
[2017-01-19] MEDS: Losartan Potassium 25 MG TAB PO SCH (07:44)
[2017-01-19] MEDS: Dextrose 5 % And 0.9 % NaCl 1,000 ML IV SCH (07:44)
[2017-01-19] MEDS: Pantoprazole 40 MG VIAL IVP SCH (07:45)
[2017-01-19] MEDS: clonazePAM 0.5 MG TAB PO PRN (07:50)
--- NOTE | 2017-01-19 08:01 | CON ---
DATE OF CONSULTATION: 01/19/2017 Mr. Munoz has been here since the , came in with epigastric abdominal pain. CT initially showed no obvious intraabdominal pathology. Ultrasound showed stones, but no inflammatory change of the g allbladder wall. He had a HIDA scan yesterday, which showed ejection fraction of 7%. The patient d enies having this pain in the past. He has had previous upper endoscopy with Dr. Clarke and know n gallstones. He was told by Dr. Clarke eventually he would need his gallbladder likely removed. Denies peptic ulcer disease. No history of pancreatitis. No heavy alcohol use. He does still sm eula. The pain was described as 10/10, mostly in the right upper quadrant, epigastric area. It is i mproved now. It was not proceeded by a greasy fatty meal. PAST MEDICAL HISTORY: Includes hypertension, COPD, asthma, GERD, BPH. MEDICINES: At home, aspirin, Cymbalta, Singulair, Nexium, losartan, clonazepam, Symbicort. ALLERGIES: No known drug allergies. SOCIAL HISTORY: Smokes half a pack a day. No other drugs, no alcohol. REVIEW OF SYSTEMS: Ten-system review of systems otherwise negative unless described above. PHYSICAL EXAMINATION: VITAL SIGNS: Blood pressure is 160/80, pulse is 62, respirations 19. He is afebrile. HEENT: Sclerae are anicteric. Oropharynx clear. NECK: No lymphadenopathy. CHEST: Clear. HEART: Regular rate and rhythm. ABDOMEN: Soft. It is mildly tender in the right upper quadrant, epigastric area. No rebound or gu arding. LABORATORY: White blood cell count is 5, hemoglobin 12, platelet count is 153. Sodium is 140, pota ssium 4.1, creatinine 1.24. ASSESSMENT: Acute cholecystitis, known gallstones, and now low ejection fraction, intractable pain, normal liver function tests otherwise. PLAN: Laparoscopic cholecystectomy later today. Risks, benefits, alternatives discussed. He gave us consent. We will do this today.
[2017-01-19] MEDS: Morphine 4 MG/ML VIAL SLOW IVP PRN ×2 (11:50→21:11)
[2017-01-19] MEDS ORDERED: Nystatin Cream 15 GM TUBE TOP PRN (12:15)
[2017-01-19] MEDS ORDERED: Bupivacaine/Epinephrine 0.25% 30 ML VIAL ONE (15:22)
[2017-01-19] MEDS ORDERED: Fentanyl 100 MCG/2 ML VIAL ONE ×4 (16:15→17:58)
[2017-01-19] MEDS ORDERED: Levofloxacin 500 mg/D5W 100 ml Premix Bag ONE (16:19)
[2017-01-19] MEDS ORDERED: Lidocaine 2% PF 10 ML AMP (For Epidural Use) ONE (16:41)
[2017-01-19] MEDS ORDERED: Propofol 200 MG/20 ML VIAL ONE ×2 (16:41)
[2017-01-19] MEDS ORDERED: Ondansetron HCl/PF 4 MG/2 ML Vial ONE (16:41)
[2017-01-19] MEDS ORDERED: Glycopyrrolate 0.2 MG/ML 5 ML SYRINGE ONE (16:41)
[2017-01-19] MEDS ORDERED: Promethazine HCl 25 MG/ML VIAL IM PRN ×2 (17:33→18:19)
[2017-01-19] MEDS ORDERED: Morphine Sulfate 2 MG/ML SYRINGE SLOW IVP PRN (17:33)
[2017-01-19] MEDS ORDERED: Promethazine HCl 25 MG/ML VIAL SLOW IVP PRN (17:33)
[2017-01-19] MEDS ORDERED: Ondansetron HCl/PF 4 MG/2 ML Vial IVP PRN ×2 (17:33→18:19)
[2017-01-19] MEDS ORDERED: Dextrose 50% Abboject 50 ML SYRINGE SLOW IVP PRN (18:19)
[2017-01-19] MEDS ORDERED: Mag-Al 1200 mg/1200 mg/30 ML UDCUP PO PRN (18:19)
[2017-01-19] MEDS ORDERED: Dextrose 5% in Water 1,000 ML IV PRN (18:19)
[2017-01-19] MEDS ORDERED: HYDROcodone/Acetaminophen 10/325 mg Tablet PO PRN ×2 (18:19)
[2017-01-19] MEDS ORDERED: hydrALAZINE 20 MG/ML VIAL SLOW IVP PRN (18:19)
[2017-01-19] MEDS ORDERED: Calcium Carbonate 500 MG ChewTAB PO PRN (18:19)
[2017-01-19] MEDS ORDERED: Morphine 4 MG/ML VIAL SLOW IVP PRN (18:30)
--- NOTE | 2017-01-19 18:46 | OP ---
DATE OF SURGERY: 01/19/2017 PREOPERATIVE DIAGNOSIS: Acute cholecystitis. POSTOPERATIVE DIAGNOSIS: Acute cholecystitis. PROCEDURE: Laparoscopic cholecystectomy. SURGEON: Mick Cm M.D. ANESTHESIA: General. ESTIMATED BLOOD LOSS: Minimal. COMPLICATIONS: None. SPECIMEN: Gallbladder. FINDINGS: Cholecystitis. PROCEDURE IN DETAIL: The patient was taken to the Operating Room and laid supine on the Operating Ro om table. After general anesthetic was obtained, the abdomen was prepped and draped in a sterile fas hion. A curved incision was made below the umbilicus. Cautery was used to dissect down to the umbil ical fascia. Umbilical fascia was incised and held up using a Mulugeta. The abdominal cavity was ente red using a Ann Marie clamp. Holding stitch of Vicryl was placed on each side of the fascia. Ayala tro car was placed. High-flow pneumoperitoneum was obtained. An upper midline 5-mm port and two right up per quadrant 5-mm ports were placed under direct camera visualization. The gallbladder was retracted from the gallbladder fossa. The peritoneum of the gallbladder was opened anteriorly and posteriorly . The critical view triangle was seen showing only the cystic duct and cystic artery branching from medial to lateral. There were no other branching structures. Two clips were placed proximally on th e cystic duct and one laterally. It was cut using laparoscopic scissors. The cystic artery was take n in the same way. Electrocautery was then used to dissect the gallbladder out of the gallbladder fos sa. The gallbladder was placed in an Endo catch bag and brought out through the Ayala. There was n o bleeding or bile in the liver bed. The cystic duct stump and cystic artery stump were intact witho ut evidence of extravasation or bleeding. All port sites were infiltrated using local anesthesia. A ll ports were removed under camera visualization. Pneumoperitoneum was let down. The Vicryl was use d to close the fascial defect below the umbilicus. All incisions were irrigated and closed using 4-0 Monocryl and DermaBond. The patient was en route to Recovery in stable condition. All instrument c ounts, needle counts and lap counts were correct.
[2017-01-19] MEDS: Sodium Chloride 0.9% 1,000 ML IV SCH (19:54)
[2017-01-19] MEDS ORDERED: Enoxaparin Sodium 40 MG/0.4 ML SYRINGE SC SCH (21:00)
[2017-01-19] MEDS: Terazosin HCl 1 MG CAP PO SCH (21:16)
[2017-01-19] MEDS: Famotidine/PF 20 mg/2ml Vial SLOW IVP SCH (21:16)
[2017-01-19] MEDS: Famotidine 20 MG TAB PO SCH (21:16)
[2017-01-19] MEDS: Montelukast Sodium 10 mg Tablet PO SCH (22:05)
[2017-01-20] MEDS: cefTRIAXone\\ROCEPHIN 1 GM, Syringe 0.4 ML in Sterile Water 9.6 ML SLOW IVP SCH (00:05)
[2017-01-20] MEDS: Morphine 4 MG/ML VIAL SLOW IVP PRN (05:26)
[2017-01-20] MEDS: Mometasone/Formoterol 120 PUFF INHALER INH SCH (06:20)
--- NOTE | 2017-01-20 06:45 | PRG ---
DATE OF SERVICE: 01/20/2017 SUBJECTIVE: Postop day #1 laparoscopic cholecystectomy. Mr. Munoz is doing well. He has no complai nts. OBJECTIVE: VITAL SIGNS: He is afebrile. Vital signs are stable. ABDOMEN: Soft. Wounds are healing well. ASSESSMENT: Postoperative day #1 laparoscopic cholecystectomy for cholecystitis. PLAN: Discharge home today. I wrote for Suzanne. Follow up with me in 2 weeks.
[2017-01-20 07:28] VITALS: BP 139/71; TEMP 97.3
[2017-01-20] MEDS: Famotidine 20 MG TAB PO SCH (07:52)
[2017-01-20] MEDS: Losartan Potassium 25 MG TAB PO SCH ×2 (08:11→08:14)
[2017-01-20] MEDS: Famotidine/PF 20 mg/2ml Vial SLOW IVP SCH (08:11)
[2017-01-20] MEDS: Sodium Chloride 0.9% 1,000 ML IV SCH (08:12)
--- NOTE | 2017-01-20 09:11 | PDOC.PN ---
- Subjective Encounter Start Date: 01/20/17 Encounter Start Time: 09:10 Mr. Munoz is doing fine today. He was seen today in follow-up of acute cholecystitis. He was able to eat this morning, and wants to go home. - Objective Resuscitation Status: Resuscitation Status FULL:Full Resuscitation MAR Reviewed: Yes Vital Signs & Weight: Vital Signs (12 hours) Temp Pulse Resp BP Pulse Ox 01/20/17 08:00 97.3 F L 66 18 96 01/20/17 07:27 97.3 F L 66 18 139/71 96 Weight Weight 169 lb 6.4 oz I&O: 01/19/17 01/20/17 01/21/17 06:59 06:59 06:59 Intake Total 3100 600 Output Total 350 Balance 2750 600 Result Diagrams: 01/19/17 04:10 01/19/17 04:10 Phys Exam - Physical Examination HEENT: PERRLA Respiratory: no wheezing, no rales, no rhonchi, clear to auscultation bilateral Cardiovascular: RRR, no significant murmur Gastrointestinal: soft, non-tender, no distention Musculoskeletal: no edema Dx/Plan (1) Cholelithiases Code(s): K80.20 - CALCULUS OF GALLBLADDER W/O CHOLECYSTITIS W/O OBSTRUCTION Status: Acute (2) Community acquired bacterial pneumonia Code(s): J15.9 - UNSPECIFIED BACTERIAL PNEUMONIA Status: Acute (3) GERD (gastroesophageal reflux disease) Code(s): K21.9 - GASTRO-ESOPHAGEAL REFLUX DISEASE WITHOUT ESOPHAGITIS Status: Chronic (4) Hypertension Code(s): I10 - ESSENTIAL (PRIMARY) HYPERTENSION Status: Chronic - Plan * Acute cholecystitis- improved- patient is stable for discharge home * HTN- blood pressure is stable * Stable for discharge home
--- NOTE | 2017-01-20 12:32 | DIS ---
PRIMARY CARE PHYSICIAN: Dr. Karly Wood DATE OF ADMISSION: 01/16/2017 DATE OF DISCHARGE: 01/20/2017 DISCHARGE DISPOSITION: Home. PRIMARY DISCHARGE DIAGNOSES: 1. Acute cholecystitis, status post laparoscopic cholecystectomy. 2. Community-acquired pneumonia. 3. Chronic obstructive pulmonary disease and asthma. 4. Hypertension. 5. Gastroesophageal reflux disease. 6. Benign prostatic hypertrophy. DISCHARGE MEDICATIONS: Include terazosin 2 mg at bedtime, Singulair 10 mg at bedtime, Cozaar 25 mg d aily, Nexium 40 mg daily, Cymbalta 60 mg in the evening, 30 mg in the a.m., clonazepam 1 mg twice a d ay, Symbicort 160/4.5 one inhalation twice a day, aspirin 81 mg daily, Acyclovir 400 mg daily. PROCEDURES DONE DURING ADMISSION: The patient had a CT scan of the abdomen and pelvis and showing ev idence of a left lower lobe pneumonia or pneumonitis. There was some very small trophic appearing le ft kidney, multiple gallstones and without gallbladder wall thickening. There was a moderate amount of fluid within the nondilated border in the small loops of bowel. There was a normal appearing appe ndix. The patient had an abdominal ultrasound showing multiple cholelithiasis without gallbladder wa ll thickening or ductal dilatation. He had a HIDA scan showing evidence of gallbladder dysfunction w ith an abnormally low ejection fraction CODE STATUS: Full code. ALLERGIES: No known drug allergies. HOSPITAL COURSE: Mr. Munoz is a pleasant 61-year-old gentleman who was admitted after having complai nts of intractable abdominal pain as well as some nausea. He also was having a productive cough. He was admitted and found to have a left lower lobe infiltrate initially treated with antibiotics for t his. However, during the course of his evaluation, it was also found that he had stones in his gallb ladder. These were felt to be contributing to his symptoms and likely the primary cause of his sympt oms after the results of the HIDA scan were obtained. Therefore, he was seen by General Surgery, und erwent a laparoscopic cholecystectomy. He is feeling much better post-surgery and is being discharge d home today on the to have close outpatient follow up with his primary care physician.
== END 2017-01-20 15:05 | disposition home or self-care (01) | DRG 417 ==
LOC: ERS 12:50 → T4-A 15:11
PROVIDERS: ADMIT Internal Medicine; ATTEND Internal Medicine
PROC: 0FT44ZZ Resection of Gallbladder, Percutaneous Endoscopic Approach (ICD-10-PCS; principal; 2017-01-19)
DX: K80.12 Calculus of gallbladder with acute and chronic cholecystitis without obstruction (principal); J15.9 Unspecified bacterial pneumonia; N17.9 Acute kidney failure, unspecified; N18.3 Chronic kidney disease, stage 3 (moderate); J44.9 Chronic obstructive pulmonary disease, unspecified; K21.9 Gastro-esophageal reflux disease without esophagitis; F17.210 Nicotine dependence, cigarettes, uncomplicated; N40.0 Benign prostatic hyperplasia without lower urinary tract symptoms; F41.8 Other specified anxiety disorders; I12.9 Hypertensive chronic kidney disease with stage 1 through stage 4 chronic kidney disease, or unspecified chronic kidney disease
CPT/HCPCS: 36415; 71010; 74177; 76705; 78227; 80048; 80053; 81003; 81015; 82553; 83605; 83690; 83880; 84484; 85025; 85610; 85730; 87040; 88304; 93005; 96361; 96365; 96375; 96376; A4216; A9537; C9113; J0696; J1650; J1956; J2001; J2270; J2405; J2704; J3010; Q0162; S0028

== ENCOUNTER 2017-05-04 10:38 | Day surgery (SDC) | payer OTHER ==
[2017-05-03 12:56] VITALS: BMI 24.3
--- NOTE | 2017-05-04 06:02 | HP ---
DATE OF ADMISSION: 05/04/2017 HISTORY OF PRESENT ILLNESS: This is a 61-year-old male referred to me for abdominal pain, dyspepsia. The patient has had an EGD in 2011 and was found to have duodenal ulcer. He also has some reflux symptoms over the years. The patient has had a cholecystectomy in 2017. Since surgery, he has developed abdominal pain on admission. Also, he has diarrhea off and on. The stools are watery sometimes. At times, he has constipation. He has nausea with vomiting off and on. Also, history of regurgitation of sour-tasting liquid. Although he has been taking Nexium over the last several years he started to have symptoms. His symptoms actually started after a gallbladder surgery in 2017. The patient comes for an EGD because of above reason. ALLERGIES: Include NSAID MEDICATIONS, SULFA, WELLBUTRIN and SELECTIVE SSRIs. MEDICAL ILLNESSES: 1. COPD. 2. Chronic acid reflux. 3. Prostatic hypertrophy. 4. Hypertension. 5. Hyperlipidemia. 6. Coronary artery disease status post angioplasty. 7. Depression and anxiety. 8. Thoracotomy repair, removal of cyst in the past. 9. Laparoscopic cholecystectomy. PHYSICAL EXAMINATION: GENERAL: Appears comfortable. VITAL SIGNS: Stable. CARDIOVASCULAR: First and second heart sounds normal. LUNGS: Clear to auscultation. ABDOMEN: Soft to palpate. No organomegaly. Abdomen is tender over the epigastric area without rebound or guarding. ADMITTING DIAGNOSES: Abdominal pain, nausea, chronic indigestion, nausea, vomiting. PLAN: EGD. MTDD
[2017-05-04] MEDS ORDERED: Lidocaine 1% PF 5 ML VIAL ONE (16:30)
[2017-05-04] MEDS ORDERED: PROPOFOL 200 MG/20 ML VIAL ONE (16:30)
--- NOTE | 2017-05-04 20:55 | OP ---
DATE OF PROCEDURE: 05/04/2017 OPERATIVE PROCEDURE: Esophagogastroduodenoscopy with biopsy. PREOPERATIVE DIAGNOSES: Abdominal pain, severe indigestion, nausea and vomiting. The patient is sta tus post laparoscopic cholecystectomy in 01/2017. His symptoms began subsequently after surgery and it is very persistent. The patient takes Nexium for acid reflux. The patient undergoing EGD, geno anderson of the above reason. POSTOPERATIVE DIAGNOSES: 1. Normal esophageal mucosa. 2. Mild gastritis with mucosal hyperemia, some linear erythematous streaks. 3. Normal duodenum. PROCEDURE IN DETAIL: The patient was placed on his left lateral position and was given sedation by A nesthesia Department. A Pentax video gastroscope under direct vision was passed down the oropharynx, past the GE junction, into the stomach and subsequently into the descending duodenum. The esophagea l mucosa appeared completely normal. The GE junction, no pathology seen. Retroflexion failed to starla w any lesion in the fundus or cardia. The gastric body and antrum is mildly edematous hyperemia. Bi opsies obtained from the area. The duodenal bulb and descending duodenum, no pathology seen. The st omach was decompressed and the scope removed. DISCHARGE PLANNING: This is a 61-year-old male with chronic indigestion, nausea, vomiting, abdominal pain. His symptoms began subsequently after laparoscopic cholecystectomy. The EGD showed gastritis , otherwise the exam was normal. DISCHARGE RECOMMENDATIONS: 1. Continue the medicines as before. 2. We will consider small bowel series and explain the patient's symptoms and negative EGD.
== END 2017-05-04 14:00 | disposition home or self-care (01) ==
LOC: SDC 10:38
PROVIDERS: ATTEND Internal Medicine Gastroenterology
PROC: 0DB68ZX Excision of Stomach, Via Natural or Artificial Opening Endoscopic, Diagnostic (ICD-10-PCS; principal; 2017-05-04)
DX: K29.50 Unspecified chronic gastritis without bleeding (principal); K21.9 Gastro-esophageal reflux disease without esophagitis; J44.9 Chronic obstructive pulmonary disease, unspecified; I10 Essential (primary) hypertension; E78.5 Hyperlipidemia, unspecified; I25.10 Atherosclerotic heart disease of native coronary artery without angina pectoris; M19.90 Unspecified osteoarthritis, unspecified site; F41.8 Other specified anxiety disorders; F17.210 Nicotine dependence, cigarettes, uncomplicated; Z90.49 Acquired absence of other specified parts of digestive tract; Z79.82 Long term (current) use of aspirin; Z79.899 Other long term (current) drug therapy; Z88.6 Allergy status to analgesic agent; Z88.5 Allergy status to narcotic agent; Z88.8 Allergy status to other drugs, medicaments and biological substances; Z98.61 Coronary angioplasty status
CPT/HCPCS: 88305; 88312; J2001; J2704

== ENCOUNTER 2017-10-13 08:46 | Emergency (ER) | payer OTHER | END 2017-10-13 10:28 | disposition home or self-care (01) | LOC: ERS 08:46 | DX: L85.8 Other specified epidermal thickening (principal); F32.9 Major depressive disorder, single episode, unspecified; J44.9 Chronic obstructive pulmonary disease, unspecified; K58.9 Irritable bowel syndrome, unspecified; I10 Essential (primary) hypertension; F17.210 Nicotine dependence, cigarettes, uncomplicated; Z79.82 Long term (current) use of aspirin; Z79.899 Other long term (current) drug therapy; Z79.51 Long term (current) use of inhaled steroids | CPT/HCPCS: 99283 ==

== ENCOUNTER 2018-10-19 09:52 | Outpatient (CLI) | payer OTHER | END 2018-10-19 09:53 | disposition home or self-care (01) | LOC: CTENTCT 09:52 | PROVIDERS: ATTEND Otolaryngology Plastic Surgery within the Head & Neck | DX: J32.9 Chronic sinusitis, unspecified (principal); R51 Headache | CPT/HCPCS: 36415; 70486 ==

== ENCOUNTER 2018-11-15 08:46 | Day surgery (SDC) | payer OTHER ==
[2018-11-14 12:31] VITALS: BMI 24.7
[2018-11-15] MEDS ORDERED: Oxymetazoline HCl 0.05% ( 15 ML ) ONE ×2 (09:42→10:09)
[2018-11-15] MEDS ORDERED: Fentanyl 250 MCG/5 ML VIAL ONE (10:04)
[2018-11-15] MEDS ORDERED: Albuterol Sulfate HFA (OR ONLY) ONE (10:04)
[2018-11-15] MEDS ORDERED: Lidocaine 1% w/Epinephrine 1:100K 20 ML VIAL ONE (10:09)
[2018-11-15] MEDS ORDERED: Famotidine/PF 20 mg/2ml Vial ONE (11:52)
[2018-11-15] MEDS ORDERED: Ondansetron PF 4 MG/2 ML Vial ONE (12:00)
[2018-11-15] MEDS ORDERED: PHENYLEPHRINE-NS 100 MCG/ML 10 ML SYRINGE ONE (12:40)
[2018-11-15] MEDS ORDERED: PROPOFOL 200 MG/20 ML VIAL ONE (12:40)
[2018-11-15] MEDS ORDERED: Rocuronium Bromide 10 MG/ML (10ML VIAL) ONE (12:40)
[2018-11-15] MEDS ORDERED: Glycopyrrolate 0.2 MG/ML 5 ML SYRINGE ONE (12:40)
[2018-11-15] MEDS ORDERED: Lidocaine 1% PF 5 ML VIAL ONE (12:40)
[2018-11-15] MEDS ORDERED: Ketorolac Tromethamine 30 MG/ML VIAL ONE (12:40)
--- NOTE | 2018-11-15 18:17 | EKG ---
Test Reason : PREOP Blood Pressure : / mmHG Vent. Rate : 075 BPM Atrial Rate : 075 BPM P-R Int : 210 ms QRS Dur : 102 ms QT Int : 388 ms P-R-T Axes : 040 063 065 degrees QTc Int : 433 ms Sinus rhythm with 1st degree A-V block ST elevation inferior leads present in past is most c/w normal variant When compared with ECG of 28-OCT-2017 06:42, No significant change was found Confirmed by DR. Lee Ann WILSON ([id number]) on 11/15/2018 6:16:51 PM Referred By: Ed COSTA Confirmed By:DR. Lee Ann WILSON
--- NOTE | 2018-11-16 12:30 | OP ---
DATE OF PROCEDURE: 11/15/2018 PREOPERATIVE DIAGNOSES: 1. Chronic rhinosinusitis. 2. Bilateral inferior turbinate hypertrophy. 3. Nasal obstruction. POSTOPERATIVE DIAGNOSES: 1. Chronic rhinosinusitis. 2. Bilateral inferior turbinate hypertrophy. 3. Nasal obstruction. PROCEDURES PERFORMED: 1. Bilateral endoscopic sinus surgery, total ethmoidectomies. 2. Bilateral endoscopic sinus surgery, maxillary antrostomies. 3. Bilateral endoscopic sinus surgery, frontal sinusotomies. 4. Bilateral inferior turbinate submucosal resection. ESTIMATED BLOOD LOSS: 20 mL. COMPLICATIONS: None. ANESTHESIA: GETA. DESCRIPTION OF PROCEDURE: The patient was taken to the operating room and GETA was obtained by the anesthesia staff. Afrin pledgets were then placed into the nasal cavity bilaterally. The patient was placed into the beach chair position and was prepped and draped for standard nasal surgical procedures. Following this, 1% lidocaine with 1:100,000 epinephrine were injected into the middle turbinates and lateral nasal wall bilaterally. Following this, the 0-degree endoscope was used to visualize the middle turbinate and the middle turbinate was medially fractured using a Sunspot elevator. Following this, the uncinate process was identified and was examined. The uncinate process was noted to be inflamed and laterally displaced bilaterally. Following this, a ball-ended probe was used to anteriorly fracture the uncinate process bilaterally. Following this, the 0-degree microdebrider and the up-biting Blakesley forceps were used to remove the uncinate process bilaterally. Following this, the natural maxillary sinus ostia was identified with the 0-degree endoscope and the ball-ended probe. The natural maxillary ostia was then widened using a 40-degree microdebrider and the straight Blakesley forceps bilaterally. Following this, the ethmoidal bulla was identified bilaterally. A 0-degree microdebrider was used to puncture the ethmoidal bulla on its medial and inferior aspect bilaterally. Following this, the 0-degree microdebrider and the up-biting Blakesley forceps were used to remove the ethmoidal bulla. Following this, the grand lamella was identified posterior to this area and was punctured using the 0-degree microdebrider bilaterally. Following this, the ethmoidal cells were opened from the posterior to the anterior using the 0-degree microdebrider, the 40-degree microdebrider and the up-biting Blakesley forceps bilaterally. Following this, the 45-degree endoscope and the 40-degree microdebrider blade were used to further remove the anterior ethmoidal cells to the level of the frontal sinus recess bilaterally. Following this, 45-degree endoscope was used to visualize the frontal recess, which was further opened using the 40-degree microdebrider bilaterally. Following this, the frontal sinus ostia was visualized and using the up-biting Blakesley forceps and the 40-degree microdebrider blade along with a 45-degree endoscope, the frontal sinus ostia was widened bilaterally. Following this, the inferior turbinates were punctured on the anterior and inferior aspect with the submucosal microdebrider and submucosal resection was performed of the anterior and inferior aspect of the inferior turbinates. Following this, the nasal cavity was irrigated and MeroPacks were placed within the middle meatus. Job ID: [id number]
== END 2018-11-15 14:50 | disposition home or self-care (01) ==
LOC: SDC 08:46
PROVIDERS: ATTEND Otolaryngology Plastic Surgery within the Head & Neck
PROC: 09TU8ZZ Resection of Right Ethmoid Sinus, Via Natural or Artificial Opening Endoscopic (ICD-10-PCS; principal; 2018-11-15)
PROC: 099Q8ZZ Drainage of Right Maxillary Sinus, Via Natural or Artificial Opening Endoscopic (ICD-10-PCS; principal; 2018-11-15)
PROC: 09QS8ZZ Repair Right Frontal Sinus, Via Natural or Artificial Opening Endoscopic (ICD-10-PCS; principal; 2018-11-15)
PROC: 09TL8ZZ Resection of Nasal Turbinate, Via Natural or Artificial Opening Endoscopic (ICD-10-PCS; principal; 2018-11-15)
PROC: 09TV8ZZ Resection of Left Ethmoid Sinus, Via Natural or Artificial Opening Endoscopic (ICD-10-PCS; principal; 2018-11-15)
PROC: 099R8ZZ Drainage of Left Maxillary Sinus, Via Natural or Artificial Opening Endoscopic (ICD-10-PCS; principal; 2018-11-15)
PROC: 09QT8ZZ Repair Left Frontal Sinus, Via Natural or Artificial Opening Endoscopic (ICD-10-PCS; principal; 2018-11-15)
DX: J32.9 Chronic sinusitis, unspecified (principal); J34.89 Other specified disorders of nose and nasal sinuses; J34.3 Hypertrophy of nasal turbinates; I10 Essential (primary) hypertension; F17.210 Nicotine dependence, cigarettes, uncomplicated; F41.9 Anxiety disorder, unspecified; F32.9 Major depressive disorder, single episode, unspecified; M06.9 Rheumatoid arthritis, unspecified
CPT/HCPCS: 93005; 93010; J0131; J1885; J2001; J2405; J2704; J3010; S0028

== ENCOUNTER 2019-01-22 14:15 | Outpatient (CLI) | payer OTHER ==
--- NOTE | 2019-01-22 14:46 | RAD ---
2 view chest: [01/22/2019] Comparion:01/10/2012 HISTORY: Dyspnea FINDINGS: There is increased linear interstitial density with pulmonary hyperinflation, unchanged whe n compared the prior examination, consistent with COPD in the proper clinical setting. There are postoperative clips in the right perihilar and suprahilar region, stable as well. No pneumothorax or pleural fluid. No focal consolidation or alveolar edema. IMPRESSION: Stable appearance of the chest as described above.
== END 2019-01-22 14:16 | disposition home or self-care (01) ==
LOC: RAD 14:15
PROVIDERS: ATTEND Internal Medicine
DX: R06.00 Dyspnea, unspecified (principal)
CPT/HCPCS: 71046

== ENCOUNTER 2019-02-02 10:15 | Emergency (ER) | payer OTHER ==
[2019-02-02] MEDS ORDERED: predniSONE 20 MG TAB ONE (10:34)
--- NOTE | 2019-02-02 10:51 | RAD ---
EXAM: Chest PA and lateral: HISTORY: Shortness of breath. Cough COMPARISON: 08/02/2018 FINDINGS: Lung castellanos are clear. Vascular markings are normal. Heart and mediastinum appear unremarkable. Osseous structures are unremarkable. IMPRESSION: Unremarkable chest
[2019-02-02 10:54] LABS: Hemoglobin 14.9 g/dL (14.0-18.0); Mean Corpuscular HGB CONC 32.6 g/dL (32.0-36.0); Mean Corpuscular Hemoglobin 28.5 pg (27.0-31.0); Mean Corpuscular Volume 87.5 fL (78.0-98.0); Mean Platelet Volume 13.4 fL (7.4-10.4); Platelet Count 167 thou/uL (130-400); RBC Distribution Width 12.3 % (11.5-14.5); Red Blood Cell (RBC) Count 5.22 mill/uL (4.70-6.10); White Blood Cell (WBC) Count 6.8 thou/uL (4.8-10.8)
[2019-02-02 11:03] LABS: ALT (SGPT) 25 U/L (8-55); AST (SGOT) 19 U/L (5-34); Alkaline Phosphatase 70 U/L (40-110); Anion Gap 16 mmol/L (10-20); BUN (Urea Nitrogen) 19 mg/dL (8.4-25.7); Bilirubin, Total 0.3 mg/dL (0.2-1.2); Calc. Creatinine Clearance 0 mL/min (70-130); Calcium 9.4 mg/dL (7.8-10.44); Carbon Dioxide 21 mmol/L (23-31); Chloride 108 mmol/L (98-107); Estimated GFR-MDRD 50; Glucose 101 mg/dL (80-115); Sodium 141 mmol/L (136-145)
[2019-02-02 11:06] LABS: #Basophils 0.1 thou/uL (0.0-0.2); #Eosinphils 0.2 thou/uL (0.0-0.7); #Lymphocytes 1.4 thou/uL (1.20-3.40); #Monocytes 0.6 thou/uL (0.11-0.59); #Neutrophils 4.4 thou/uL (1.40-6.50); %Eosinophils 3.2 % (0.0-10.0); %Lymphocytes 20.4 % (21.0-51.0); %Monocytes 9.3 % (0.0-10.0); Large Platelets SLIGHT; MDiff Complete? YES; Platelet Morphology Comment Appears Adequate; RBC Morphology Normal
== END 2019-02-02 11:27 | disposition home or self-care (01) ==
LOC: SCSER 10:15
DX: J44.1 Chronic obstructive pulmonary disease with (acute) exacerbation (principal); I10 Essential (primary) hypertension; E78.5 Hyperlipidemia, unspecified; E78.00 Pure hypercholesterolemia, unspecified; M19.90 Unspecified osteoarthritis, unspecified site; F41.9 Anxiety disorder, unspecified; N40.1 Benign prostatic hyperplasia with lower urinary tract symptoms; F32.9 Major depressive disorder, single episode, unspecified; F17.210 Nicotine dependence, cigarettes, uncomplicated
CPT/HCPCS: 71046; 80053; 83880; 84484; 85025; 93005; 94760; J7512; J7620

== ENCOUNTER 2019-03-23 12:31 | Emergency (ER) | payer OTHER ==
[~2019-03-23 12:31] MED LIST: Iopamidol-370 76% 500 ML 1 ML ONE
[2019-03-23 13:08] LABS: #Basophils 0.1 thou/uL (0.0-0.2); #Eosinphils 0.2 thou/uL (0.0-0.7); #Lymphocytes 1.4 thou/uL (1.20-3.40); #Monocytes 0.7 thou/uL (0.11-0.59); %Basophils 0.9 % (0.0-1.0); %Eosinophils 2.4 % (0.0-10.0); %Lymphocytes 19.8 % (21.0-51.0); %Neutrophils 67.9 % (42.0-75.0); Hemoglobin 14.8 g/dL (14.0-18.0); Mean Corpuscular HGB CONC 32.4 g/dL (32.0-36.0); Mean Corpuscular Hemoglobin 27.7 pg (27.0-31.0); Mean Corpuscular Volume 85.6 fL (78.0-98.0); Mean Platelet Volume 10.4 fL (7.4-10.4); Platelet Count 187 thou/uL (130-400); RBC Distribution Width 12.1 % (11.5-14.5); Red Blood Cell (RBC) Count 5.34 mill/uL (4.70-6.10); White Blood Cell (WBC) Count 7.3 thou/uL (4.8-10.8)
--- NOTE | 2019-03-23 13:24 | RAD ---
XR Chest 1 View Portable HISTORY: Cough and chest pain COMPARISON: 02/02/2019 FINDINGS: The heart size is normal. The lungs are well expanded without focal areas of consolidation, pneumothorax or pleural effusions. IMPRESSION: No radiographic evidence of acute cardiopulmonary process.
[2019-03-23 13:42] LABS: ALT (SGPT) 32 U/L (8-55); AST (SGOT) 25 U/L (5-34); Albumin 4.2 g/dL (3.4-4.8); Alkaline Phosphatase 71 U/L (40-110); Anion Gap 12 mmol/L (10-20); BUN (Urea Nitrogen) 15 mg/dL (8.4-25.7); Bilirubin, Total 0.5 mg/dL (0.2-1.2); CK (CPK) 89 U/L (30-200); Calc. Creatinine Clearance 0 mL/min (70-130); Calcium 9.9 mg/dL (7.8-10.44); Carbon Dioxide 26 mmol/L (23-31); Chloride 106 mmol/L (98-107); Estimated GFR-MDRD 46; Globulin 2.8 g/dL (2.4-3.5); Glucose 89 mg/dL (80-115); Potassium 5.1 mmol/L (3.5-5.1); Sodium 139 mmol/L (136-145)
--- NOTE | 2019-03-23 15:22 | CT ---
CT PULMONARY ANGIOGRAM WITH IV CONTRAST AND 3-D POSTPROCESSING: HISTORY:Chest pain, cough FINDINGS: There is good contrast opacification of the pulmonary arterial vasculature without filling defects to suggest pulmonary embolism. The thoracic aorta is well opacified without aneurysm or dissection. No pleural or pericardial effusions are seen. There is a 2 cm nodule in the left upper lobe. There are postop changes in the right upper lobe. There are degenerative changes in the spine. Upper abdominal tomograms demonstrate changes of cholecystectomy and calcified granulomas in the sple en. The adrenal glands are normal. IMPRESSION: No CT evidence of pulmonary embolism. RECOMMENDATION: The lung nodule should be evaluated with a PET scan.
== END 2019-03-23 17:00 | disposition left against medical advice (07) ==
LOC: ERS 12:31
DX: R07.9 Chest pain, unspecified (principal); E78.5 Hyperlipidemia, unspecified; E78.00 Pure hypercholesterolemia, unspecified; M19.90 Unspecified osteoarthritis, unspecified site; I10 Essential (primary) hypertension; J44.9 Chronic obstructive pulmonary disease, unspecified; F41.9 Anxiety disorder, unspecified; F32.9 Major depressive disorder, single episode, unspecified; Z87.891 Personal history of nicotine dependence; Z79.82 Long term (current) use of aspirin; Z79.899 Other long term (current) drug therapy; Z79.51 Long term (current) use of inhaled steroids
CPT/HCPCS: 36415; 36416; 71045; 71275; 80053; 82550; 84484; 85025; 93005; Q9967

== ENCOUNTER 2019-05-10 09:33 | Outpatient (CLI) | payer OTHER ==
--- NOTE | 2019-05-10 12:31 | PET ---
Radionucleotide PET scan with CT attenuation correction HISTORY: Solitary pulmonary nodule. COMPARISON: CTA chest 03/23/2019. FINDINGS: Physiologic uptake of radiotracer is present throughout the enteric system and along each u rinary tract. The spiculated mass at the medial aspect of the left upper lung lobe is 2.0 cm width on the axial sarah ges by 1.7 cm maximal depth. Hypermetabolic activity with maximum SUV 12.0. No other hypermetabolic lung nodules or lymph nodes. No distal hypermetabolic abnormalities. Nondiagnostic CT attenuation correction images show postoperative changes at the right hilum. Emphyse matous appearance of the lungs. Old healed right posterior rib fractures. Gallbladder surgically absent. Atrophy of the left kidney. Vascular stents associated with each iliac artery. There are dege nerative changes of the lumbar spine. IMPRESSION: Left upper lobe spiculated lung mass is hypermetabolic. Primary lung neoplasm favored. No evidence of metastatic disease.
== END 2019-05-10 09:34 | disposition home or self-care (01) ==
LOC: PET 09:33
PROVIDERS: ATTEND Internal Medicine
DX: R91.1 Solitary pulmonary nodule (principal); R91.8 Other nonspecific abnormal finding of lung field
CPT/HCPCS: 78815; A9552

== ENCOUNTER 2019-08-13 10:36 | Outpatient (CLI) | payer OTHER ==
--- NOTE | 2019-08-13 15:41 | RAD ---
TWO VIEWS CHEST: Date: 08-13-2019 Provided Clinical History: Lung cancer. FINDINGS: Comparison 02-02-19. Cardiac and mediastinal silhouette is within normal limits. Lungs appear clear. No pleural fluid or p neumothorax apparent. IMPRESSION: No radiographic evidence of acute cardiopulmonary process. POS: AH
== END 2019-08-13 10:37 | disposition home or self-care (01) ==
LOC: SCSRAD 10:36
PROVIDERS: ATTEND Internal Medicine Hematology & Oncology
DX: C34.12 Malignant neoplasm of upper lobe, left bronchus or lung (principal)
CPT/HCPCS: 71046

== ENCOUNTER 2020-03-27 09:39 | Outpatient (CLI) | payer OTHER ==
--- NOTE | 2020-03-27 12:13 | PET ---
Radionucleotide PET scan with CT attenuation correction HISTORY: Left lung cancer. Restaging. COMPARISON: 04/11/2019. FINDINGS: Physiologic uptake of radiotracer within the enteric system and along each urinary tract. Postoperative changes at the left lung apex consistent with surgical resection of the left upper lobe mass. No residual hypermetabolic activity within the left lung. No abnormal activity within the mediastinum , adrenal glands, or elsewhere. IMPRESSION : Interval surgical resection left upper lobe carcinoma. No evidence of residual or metastatic disease.
== END 2020-03-27 09:40 | disposition home or self-care (01) ==
LOC: PET 09:39
DX: C34.92 Malignant neoplasm of unspecified part of left bronchus or lung (principal); Z98.890 Other specified postprocedural states
CPT/HCPCS: 78815; A9552